=== PATIENT | male | born 1995 ===

== ENCOUNTER 2018-06-10 12:13 | Day surgery (SDC) | payer OTHER ==
[~2018-06-10] VITALS: Ht 170.2 cm; Wt 75.7 kg
[2018-06-10] VITALS (12 sets, daily range): BP systolic 100–123; BP diastolic 47–76
--- NOTE | 2018-06-10 07:01 | Pre-Procedure Note/Attestation ---
Pre-Procedure Note/Attestation Complete Prior to Procedure Planned Procedure: left Procedure Narrative: left knee lateral meniscectomy Indications for Procedure Pre-Operative Diagnosis: left knee meniscus tear Attestation I attest that I discussed the nature of the procedure; its benefits; risks and complications; and alternatives (and the risks and benefits of such alternatives ), prior to the procedure, with the patient (or the patient's legal insurance verification representative). I attest that, if there was a reasonable possibility of needing a blood transfusion, the patient (or the patient's legal insurance verification representative) was given the [facility] standardized written summary, pursuant to the [place] Blood Safety Act ([place] Health and Safety Code # 1645, as amended). I attest that I re-evaluated the patient just prior to the surgery and that there has been no change in the patient's H&P, except as documented below: none Ander Fierro MD Jun 10, 2018 07:01
[~2018-06-10 12:13] MED LIST: ceFAZolin 1gm IVPB IVPB ONE; celeBREX 200mg Cap **SURGERY PATIENTS ONLY ORAL ONE; oxyCONTIN 20mg tab ORAL ONE
[2018-06-10] MEDS ORDERED: NKM (12:37)
[2018-06-10] MEDS ORDERED: Midazolam 2mg/2ml Inj ONE (12:45)
[2018-06-10] MEDS ORDERED: fentaNYL 100 mcg/2 mL IV ONE (12:45)
[2018-06-10] MEDS ORDERED: Lidocaine 1% MPF 10mg/ml 5ml ONE (12:47)
[2018-06-10] MEDS ORDERED: Ketorolac 30mg Inj ONE ×2 (12:47→14:01)
[2018-06-10] MEDS ORDERED: Propofol 200mg/20ml IV ONE (12:47)
[2018-06-10] MEDS ORDERED: oxyCONTIN 20mg tab ORAL ONE (12:52)
[2018-06-10] MEDS ORDERED: D5 1/2NS 1,000 ML IV SCH (13:15)
[2018-06-10] MEDS ORDERED: HYDROcodone/Acetamin 5/325 tab ORAL PRN (13:15)
[2018-06-10] MEDS ORDERED: HYDROmorphone 1mg/ml Carpuject SUBQ PRN (13:15)
[2018-06-10] MEDS ORDERED: Tylenol #3 tab (300mg/30mg) ORAL PRN (13:15)
[2018-06-10] MEDS ORDERED: Ropivacaine 5mg/ml Vial 30ml INJ ONE (13:24)
[2018-06-10] MEDS ORDERED: NS Irrig 4000ml IRRIG ONE (13:30)
[2018-06-10] MEDS ORDERED: NS Irrig 2000ml IRRIG ONE (13:30)
[2018-06-10] MEDS ORDERED: LR 1000ml ONE (13:30)
--- NOTE | 2018-06-10 14:07 | Anethesia Preoperative Eval ---
Anesthesia Pre-op PMH/ROS General Date of Evaluation: Jun 10, 2018 Time of Evaluation: 13:18 Anesthesiologist: Ish ASA Score: ASA 2 Mallampati Score Class I : Soft palate, uvula, fauces, pillars visible Class II: Soft palate, uvula, fauces visible Class III: Soft palate, base of uvula visible Class IV: Only hard plate visible Mallampati Classification: Class II Surgeon: Carlee Diagnosis: L angelito pain Surgical Procedure: L knee scope Anesthesia History: none Family History: no anesthesia problems Allergies: Uncoded Allergies: SULFA (Allergy, Severe, 06/10/18) SKIN RASH Medications: see eMAR Patient NPO?: Yes Past Medical History Cardiovascular: Denies: HTN, CAD, [place], valve dz, arrhythmia, other Pulmonary: Denies: asthma, COPD, ERASMO, other Gastrointestinal/Genitourinary: Reports: GERD - mild; Denies: CRI, ESRD, other Neurologic/Psychiatric: Denies: dementia, CVA, depression/anxiety, TIA, other Endocrine: Denies: DM, hypothyroidism, steroids, other HEENT: Denies: cataract (L), cataract (R), glaucoma, TETLIN (L), TETLIN (R), other Hematology/Immune: Denies: anemia, DVT, bleeding disorder, other Musculoskeletal/Integumentary: Denies: OA, RA, DJD, DDD, edema, other PMH Narrative: as above PSxH Narrative: Dental Sx Anesthesia Pre-op Phys. Exam Physician Exam Last Vital Signs Date Time Temp Pulse Resp B/P (MAP) Pulse Ox O2 Delivery O2 Flow Rate FiO2 06/10/18 13:00 97.1 59 20 123/61 100 Room Air Constitutional: NAD Neurologic: CN 2-12 intact Cardiovascular: RRR, no M/R/G Respiratory: CTA Gastrointestinal: S/NT/ND Airway Exam Mallampati Score: Class II MO: full Neck: flexible ROM: full Teeth: intact Dentures: no upper, no lower Anesthesia Pre-op A/P Labs see chart Studies Pre-op Studies: EKG - NSR Risk Assessment & Plan Assessment: ASA 2 Plan: GA with LMA Status Change Before Surgery: No Pre-Antibiotics Drug: Ancef 2gr. Given Within 1 Hr of Incision: Yes Time Given: 13:46 Elfego Deng MD Jun 10, 2018 14:07
[2018-06-10] MEDS ORDERED: LR 1000ml 1,000 ML IVLG SCH (14:08)
[2018-06-10] MEDS ORDERED: DiphenhydrAMINE 50mg/ml Inj IVP PRN (14:15)
[2018-06-10] MEDS ORDERED: Metoclopramide 10mg/2ml Inj IVP PRN (14:15)
[2018-06-10] MEDS ORDERED: Meperidine 50mg/ml Inj(FOR RIGORS ONLY) IV PRN (14:15)
[2018-06-10] MEDS ORDERED: Ketorolac 30mg Inj IV PRN (14:15)
--- NOTE | 2018-06-10 14:19 | Brief Operative Note ---
Immediate Post Operative Note Operative Note Chief Complaint: left knee pain Pre-op Diagnosis: left knee meniscus tear Procedure: left knee scope, lateral meniscectomy Post-op Diagnosis: same as pre-op Findings: consistent w/pre-op dx studies Surgeon: md isha Incident Response Consultant: yaya dunham Anesthesiologist: md dallas Anesthesia: general Specimen: none Complications: none Condition: stable Fluids: ns Estimated Blood Loss: minimal Drains: none Implant(s) used?: No Dorothea Dunham Jun 10, 2018 14:19
--- NOTE | 2018-06-10 14:29 | Immediate Post-Op Evaluation ---
Immediate Post-Op Evalulation Immediate Post-Op Evalulation Procedure: L knee arthroscopy, meniscectomy Date of Evaluation: Jun 10, 2018 Time of Evaluation: 14:28 IV Fluids: 800 Blood Products: none Estimated Blood Loss: min Urinary Output: none Blood Pressure Systolic: 114 Blood Pressure Diastolic: 64 Pulse Rate: 68 Respiratory Rate: 20 O2 Sat by Pulse Oximetry: 98 Temperature (Fahrenheit): 97.4 Pain Score (1-10): 1 Nausea: No Vomiting: No Complications none Patient Status: reacts, patent, none Hydration Status: adequate Elfego Deng MD Jun 10, 2018 14:29
--- NOTE | 2018-06-10 16:28 | 48 Hour Post Anesthesia Eval ---
Post Anesthesia Evaluation Procedure: L knee arthroscopy, meniscectomy Date of Evaluation: Jun 10, 2018 Time of Evaluation: 16:27 Blood Pressure Systolic: 116 0: 72 Pulse Rate: 62 Respiratory Rate: 20 Temperature (Fahrenheit): 97.3 O2 Sat by Pulse Oximetry: 98 Airway: patent Nausea: No Vomiting: No Pain Intensity: 2 Hydration Status: adequate Cardiopulmonary Status: stable Mental Status/LOC: patient returned to baseline Follow-up Care/Observations: n/a Post-Anesthesia Complications: none Follow-up care needed: ready to discharge Elfego Deng MD Jun 10, 2018 16:28
--- NOTE | 2018-06-10 22:00 | Operative Note - Dictated ---
DATE OF OPERATION: 06/10/2018 PREOPERATIVE DIAGNOSIS: Left knee anterior horn of lateral meniscus tear. POSTOPERATIVE DIAGNOSES: 1. Left knee junction of body and anterior horn of lateral meniscus tearing, vertical tear measuring 15% of the lateral meniscus. 2. Some chondral fraying on the lateral femoral condyle. 3. Thickened medial plica that was rubbing against the medial femoral condyle. PROCEDURE: 1. Left knee arthroscopy and extensive intra-articular shaving. 2. Left knee partial lateral meniscectomy involving 15% of the junction of posterior horn and body of lateral meniscus. 3. Left knee lateral femoral chondroplasty. 4. Left knee resection of the thickened medial plica that was rubbing against the medial femoral condyle. SURGEON: Ander Fierro M.D. PAPER AND P[employer]P MILL WORKER: Dorothea Palma PA-C. Supervisor Pre Wave was present during the actual operative portion of the case and was important and essential part of the operation. During the operation, the medical claims assistant held and operated the arthroscopic camera for visualization, assisted by manipulating the leg to help with visualization, and helped with essential parts of the repair process as necessary such as operating surgical instruments under surgeon supervision, suture management, and wound closures. ANESTHESIOLOGIST: Dr. Deng. ANESTHESIA: LMA anesthesia. TOURNIQUET TIME: 25 minutes. ESTIMATED BLOOD LOSS: Minimal. COMPLICATIONS: None. SURGICAL INDICATION: The patient is a 23-year-old male who sustained the above injury to his knee. The patient was treated non-operative initially, but this did not alleviate the patients symptoms. Therefore, after discussing all non-surgical and surgical options, and discussing all foreseeable risk and benefits of surgery, the patient opted for surgical treatment as described above. PATIENT POSITIONING: The patient was brought to the operating room table and placed supine. All pressure points were well padded. General anesthesia was induced and a well-padded tourniquet was placed on the thigh. The lateral post was placed and positioned to allow for opening of the medial compartment of the knee without placing pressure over the fibular head. The patients entire leg was prepped and draped in the usual sterile fashion. Time out was performed and preop antibiotic was given and after exsanguinating the lower extremity, the tourniquet was inflated to 275 mmHg. EXAMINATION OF THE KNEE UNDER ANESTHESIA: Before prepping and draping the knee and while the patient was relaxed under general anesthesia, the knee was examined for ROM, and anterior and posterior, medial and lateral, posterolateral, and posteromedial instability. Pivot-shift testing was performed. There was no evidence of loss of motion or instability and the pivot-shift testing was negative. PORTAL PLACEMENT: The lateral portal was placed with the knee flexed to 90 degrees at the level of inferior border of the patella in line with the lateral border of the patella. A 0.5 cm skin incision was made with an #11 blade, and using a blunt obturator, the capsule was gently penetrated. Sterile saline solution was then infused inside the knee with the aid of a pump set at 35 mmHg pressure. Under direct visualization, placement of the medial portal was preliminarily judged using a spinal needle, and it was subsequently established using the same technique as the lateral portal. Care was given not to injure the cutaneous branches of the medial saphenous nerve or the subcutaneous veins. DIAGNOSTIC ARTHROSCOPY: The suprapatellar pouch was visualized. There was no evidence of scar tissue or loose fragments. The medial and lateral patellar facets and trochlear groove articular cartilage was visualized. These structures were intact and were devoid of any articular cartilage damage. The medial plica shelf and the corresponding medial femoral condyle articular cartilage were visualized. There was evidence of a thickened medial plica shelf that was rubbing against the medial femoral condyle. The lateral gutter and the posterolateral corner of the knee were visualized. There were no loose bodies, and the popliteus tendon and other structures of the posterolateral corner of the knee were intact intra-articularly. At this point, the knee was placed in the [id number] position and the lateral compartment was entered. The lateral femoral condyle, lateral tibial plateau, and the anterior, body, and the posterior horn of the lateral meniscus were visualized and probed. There were some chondral flaps over the lateral femoral condyle. These were superficial, although they were catching at the knee when being placed through range of motion. It was catching on the edge of the meniscus. There was a vertical tear of the junction of body and anterior horn of the lateral meniscus. This involved 15% of lateral meniscus. The knee was then placed at 90 degree and the ACL and PCL were visualized and probed. The ACL was completely intact on visualization and probing, and it had excellent tension. The PCL was completely intact on visualization and probing and it had excellent tension. The medial compartment was then entered and the medial femoral condyle, medial tibial plateau, and the anterior, body, and the posterior horn of the medial meniscus were visualized and probed. The articular surfaces were intact and devoid of articular cartilage damage. The medial meniscus was completely intact both on its undersurface and on the top. The medial gutter was visualized. There was no evidence of defect or loose fragments. The scope was then brought back to the patella femoral compartment. OPERATIVE ARTHROSCOPY: At this point, all loose debris and fragments were removed with the use of suction motorized shaver. Specific attention was given to assure all visible loose fragments were irrigated out of the knee joint with pump inflow and cannula outflow system. Attention was given to the thickened medial plica shelf. Using combination of cailin and baskets, the thickened portion of synovectomy was removed and synovectomy was performed in this fashion. Chondroplasty of the kissing lesion? of the medial femoral condyle was performed to create a smooth surface. The knee was placed through ROM and there was no contact between the thickened plica shelf and the medial femoral condyle. At this point, attention was given to the lateral meniscus. Using combination of baskets and cailin, the torn portion of the lateral meniscus was removed. Attention was given to remove all displaced and unstable portion of the lateral meniscus while maintaining as much of the functional portion of the meniscus as possible. Approximately, 15% of the junction of body and anterior horn of the meniscus was removed in this fashion. The transition between the meniscectomy portion and intact portion of the meniscus was smoothed out with combination of small baskets and cailin. Excellent transition zone was obtained in this fashion. Care was given to the area of cartilage damage in the lateral compartment. The frayed and loose fragments of articular cartilage were debrided using a motorized shaver. Suction was used to pull in the loose fragments and flaps of the cartilage and to minimize damage to the intact and well-attached portion of the cartilage. This allowed for smooth surfaces for the articular cartilage. The inflow was turned on again, the knee joint was irrigated, and debris was removed. CONDITION AT DISCHARGE FROM OPERATING ROOM: The knee was irrigated with copious amount of normal saline at the end of the procedure. The scope was removed and the water was drained. The skin edges were re-approximated and sterile dressing was applied. All lap count and instrument counts were correct. The patient tolerated the procedure well without complications and was taken to the recovery room in stable conditions. Ander Fierro M.D. DR: Rj JOB#: [id number] CC:
== END 2018-06-10 17:30 | disposition home or self-care (01) ==
LOC: SUR 12:13
DX: S83.282A Other tear of lateral meniscus, current injury, left knee, initial encounter (principal); K21.9 Gastro-esophageal reflux disease without esophagitis; Z88.2 Allergy status to sulfonamides; X58.XXXA Exposure to other specified factors, initial encounter; Y92.9 Unspecified place or not applicable
CPT/HCPCS: 29881; J0690; J1885; J2175; J2250; J2405; J2704; J2765; J2795; J3010; 94003; 94150